=== PATIENT | female | born 1990 | race African-American/Black ===

== ENCOUNTER 2019-01-31 11:57 | Outpatient (CLI) | payer OTHER | END 2019-01-31 16:24 | disposition home or self-care (01) | LOC: OBT 11:57 → L-D 11:58 → OBT 16:24 | DX: O62.9 Abnormality of forces of labor, unspecified (principal); Z3A.39 39 weeks gestation of pregnancy | CPT/HCPCS: 76818 ==

== ENCOUNTER 2019-01-31 20:40 | Inpatient (IN) | payer OTHER ==
[2019-01-31] MEDS ORDERED: LIDOCAINE 1% (MPF) 30 ML INJ INJ (21:00)
[2019-01-31] MEDS ORDERED: OXYTOCIN 30 UNITS/LR 500 ML IV (21:00)
[2019-01-31] MEDS ORDERED: MISOPROSTOL 200 MCG TAB PR (21:00)
[2019-01-31] MEDS ORDERED: CARBOPROST 250 MCG INJ IM (21:00)
[2019-01-31] MEDS ORDERED: IBUPROFEN 600 MG TAB PO (21:00)
[2019-01-31] MEDS ORDERED: METHYLERGONOVINE 0.2 MG INJ IM (21:00)
[2019-01-31 21:11] LABS: ADD MAN DIFF? NO
[2019-01-31] MEDS: LACTATED RINGER'S 1,000 ML IV ×2 (21:11→22:33)
[2019-01-31] MEDS: BUTORPHANOL 2 MG INJ IV (21:12)
[2019-01-31 21:13] LABS: WHITE BLOOD COUNT 12.8 10^3/ul (4.8-10.8)
[2019-01-31 21:13] LABS: BASOPHIL # 0.1 10^3/ul (0.0-0.1); BASOPHILS % 0.6 % (0.0-2.0); EOSINOPHILS % 0.1 % (0.0-7.0); HEMATOCRIT 35.9 % (37.0-47.0); HEMOGLOBIN 12.2 g/dl (12.0-16.0); LYMPHOCYTES # 1.6 10^3/ul (0.8-2.9); LYMPHOCYTES % 12.3 % (15.0-51.0); MEAN CORPUSCULAR HEMOGLOBIN 31.4 pg (29.0-33.0); MEAN CORPUSCULAR VOLUME 92.3 fl (82.0-101.0); MEAN PLATELET VOLUME 10.3 fl (7.4-10.4); MONOCYTE # 0.9 10^3/ul (0.3-0.9); MONOCYTES % 6.8 % (0.0-11.0); NEUTROPHIL # 9.8 10^3/ul (1.6-7.5); NEUTROPHILS % 76.3 % (39.0-77.0); PLATELET COUNT 249 10^3/UL (140-415); RED BLOOD COUNT 3.89 10^6/ul (4.20-5.40); RED CELL DISTRIBUTION WIDTH 12.8 % (11.5-14.5)
[2019-01-31 21:46] LABS: INR 0.94; PARTIAL THROMBOPLASTIN TIME 25.2 Sec (23.0-35.0); PROTIME 12.7 Sec (11.9-14.9)
[2019-01-31] MEDS ORDERED: FENTAnyl 2MCG/ML-ROPIV 0.2% 100 ML (21:48)
[2019-01-31] MEDS ORDERED: NALOXONE (0.4 MG/ML) INJ IV ×2 (22:00→22:30)
[2019-01-31] MEDS ORDERED: DIPHENHYDRAMINE 50 MG INJ IV ×2 (22:00→22:30)
[2019-01-31] MEDS ORDERED: ONDANSETRON 4 MG INJ IV ×2 (22:00→22:30)
[2019-01-31] MEDS ORDERED: EPHEDrine 25 MG/5 ML SYG IV ×2 (22:00→22:30)
[2019-01-31 22:06] LABS: HEPATITIS B SURFACE ANTIGEN NEGATIVE (NEGATIVE)
[2019-01-31] MEDS ORDERED: KETOROLAC 30 MG INJ IV (22:30)
[2019-01-31] MEDS ORDERED: morphine SULFATE/PF (10 MG/10 ML) INJ SPINAL (22:30)
[2019-01-31] MEDS ORDERED: morphine 2 MG INJ IV ×2 (22:30)
[2019-02-01 01:11] LABS: AMPHETAMINE/METHAMPHETAMINE Negative (NEGATIVE); BARBITURATES Negative (NEGATIVE); BENZODIAZEPINES Negative (NEGATIVE); CANNABINOIDS Positive (NEGATIVE); COCAINE Negative (NEGATIVE); OPIATES Negative (NEGATIVE)
[2019-02-01] MEDS: LACTATED RINGER'S 1,000 ML IV ×2 (05:45→10:24)
[2019-02-01] MEDS: FENTAnyl 2MCG/ML-ROPIV 0.2% 100 ML BAG EPI (06:44)
[2019-02-01] MEDS: MINERAL OIL LIGHT 10 ML VIAL TOP (11:33)
[2019-02-01] MEDS: OXYTOCIN 30 UNITS/LR 500 ML IV ×2 (11:34→11:35)
[2019-02-01] MEDS ORDERED: CARBOPROST 250 MCG INJ IM (15:00)
[2019-02-01] MEDS ORDERED: OXYCODONE/ASPIRIN (4.88/325) TAB PO ×2 (15:00)
[2019-02-01] MEDS ORDERED: METHYLERGONOVINE 0.2 MG INJ IM (15:00)
[2019-02-01] MEDS ORDERED: ZOLPIDEM 5 MG TAB PO (15:00)
[2019-02-01] MEDS ORDERED: MISOPROSTOL 200 MCG TAB PR (15:00)
[2019-02-01] MEDS ORDERED: OXYTOCIN 30 UNITS/LR 500 ML IV (15:00)
[2019-02-01 15:47] LABS: RAPID PLASMA REAGIN NONREACTIVE (NR)
[2019-02-01] MEDS: LANOLIN HPA 1 PKT TOP (16:27)
[2019-02-01] MEDS: BENZOCAINE 20% 56 ML SPRAY TOP (16:28)
[2019-02-01] MEDS: WITCH HAZEL/GLYCERIN PAD PR (16:28)
[2019-02-01] MEDS: IBUPROFEN 600 MG TAB PO ×2 (18:07→23:57)
[2019-02-01] MEDS: SENNA/DOCUSATE NA (8.6MG/50MG) TAB PO (21:42)
[2019-02-02] MEDS: IBUPROFEN 600 MG TAB PO ×4 (05:31→23:34)
[2019-02-02 08:14] LABS: ADD MAN DIFF? NO
[2019-02-02 08:28] LABS: ABNORMAL IP MESSAGE 1; BASOPHIL # 0.1 10^3/ul (0.0-0.1); BASOPHILS % 0.3 % (0.0-2.0); EOSINOPHILS # 0.1 10^3/ul (0.0-0.5); EOSINOPHILS % 0.3 % (0.0-7.0); HEMATOCRIT 33.9 % (37.0-47.0); HEMOGLOBIN 11.8 g/dl (12.0-16.0); LYMPHOCYTES % 16.9 % (15.0-51.0); MEAN CORPUSCULAR HEMOGLOBIN 31.4 pg (29.0-33.0); MEAN CORPUSCULAR HGB CONC 34.8 g/dl (32.0-37.0); MEAN CORPUSCULAR VOLUME 90.2 fl (82.0-101.0); MEAN PLATELET VOLUME 10.8 fl (7.4-10.4); MONOCYTE # 1.6 10^3/ul (0.3-0.9); NEUTROPHIL # 12.9 10^3/ul (1.6-7.5); NEUTROPHILS % 72.1 % (39.0-77.0); PLATELET COUNT 256 10^3/UL (140-415); RED BLOOD COUNT 3.76 10^6/ul (4.20-5.40); RED CELL DISTRIBUTION WIDTH 12.9 % (11.5-14.5)
[2019-02-02 08:28] LABS: WHITE BLOOD COUNT 17.9 10^3/ul (4.8-10.8)
[2019-02-02 08:46] LABS: POSITIVE DIFF @See below
[2019-02-02] MEDS: SENNA/DOCUSATE NA (8.6MG/50MG) TAB PO ×2 (09:51→20:54)
[2019-02-03] MEDS: IBUPROFEN 600 MG TAB PO ×2 (05:33→11:42)
[2019-02-03 08:35] LABS: ADD MAN DIFF? NO
[2019-02-03 08:49] LABS: WHITE BLOOD COUNT 12.6 10^3/ul (4.8-10.8)
[2019-02-03 08:49] LABS: BASOPHIL # 0.1 10^3/ul (0.0-0.1); BASOPHILS % 0.6 % (0.0-2.0); EOSINOPHILS # 0.1 10^3/ul (0.0-0.5); EOSINOPHILS % 0.8 % (0.0-7.0); HEMATOCRIT 35.7 % (37.0-47.0); HEMOGLOBIN 12.3 g/dl (12.0-16.0); LYMPHOCYTES % 15.8 % (15.0-51.0); MEAN CORPUSCULAR HEMOGLOBIN 31.5 pg (29.0-33.0); MEAN CORPUSCULAR HGB CONC 34.5 g/dl (32.0-37.0); MEAN CORPUSCULAR VOLUME 91.3 fl (82.0-101.0); MEAN PLATELET VOLUME 10.7 fl (7.4-10.4); MONOCYTE # 1.2 10^3/ul (0.3-0.9); MONOCYTES % 9.6 % (0.0-11.0); NEUTROPHIL # 8.9 10^3/ul (1.6-7.5); NEUTROPHILS % 70.6 % (39.0-77.0); PLATELET COUNT 271 10^3/UL (140-415); RED BLOOD COUNT 3.91 10^6/ul (4.20-5.40)
[2019-02-03] MEDS: SENNA/DOCUSATE NA (8.6MG/50MG) TAB PO (08:58)
[2019-02-03] MEDS: DIPHTH/TET/ACEL PERTUSS (ADULT) 0.5 ML VIAL IM* (09:00)
== END 2019-02-03 16:12 | disposition home or self-care (01) | DRG 807 ==
LOC: PP1 02-01 13:18 → OBT 20:40 → L-D 20:40 → OBT 20:54 → L-D 20:55
PROVIDERS: Obstetrics & Gynecology
PROC: 10E0XZZ Delivery of Products of Conception, External Approach (ICD-10-PCS; principal; 2019-02-01)
PROC: 0HQ9XZZ Repair Perineum Skin, External Approach (ICD-10-PCS; 2019-02-01)
DX: O69.1XX0 Labor and delivery complicated by cord around neck, with compression, not applicable or unspecified (principal); O70.0 First degree perineal laceration during delivery; Z37.0 Single live birth; Z3A.39 39 weeks gestation of pregnancy
CPT/HCPCS: 62322; 76815; 80307; 85025; 85610; 85730; 86592; 86850; 86900; 86901; 87340; 99464